=== PATIENT | female | born 1965 | race Hispanic/Latino ===

== ENCOUNTER 2016-11-05 15:25 | Emergency (ER) | payer MEDICAID ==
[2016-11-05 16:22] LABS: Urine Drugs of Abuse Note Disclamer
[2016-11-05 16:34] LABS: Basophils % (Auto) 1.1 % (0.0-1.8); Eosinophils % (Auto) 1.7 % (0.0-4.3); Hematocrit 40.6 % (30.3-42.9); Hemoglobin 13.4 gm/dl (10.1-14.3); Mean Corpuscular HGB Conc 33 % (30-34); Mean Corpuscular Hemoglobin 30 pg (28-32); Mean Corpuscular Volume 91 fl (79-97); Platelet Count 280 K/mm3 (140-440); Red Blood Count 4.47 M/mm3 (3.65-5.03); Red Cell Distribution Width 14.2 % (13.2-15.2)
[2016-11-05] MEDS ORDERED: TYLENOL PO ONE (16:35)
[2016-11-05 16:47] LABS: Bilirubin,Urine NEG (Negative); Blood,Urine NEG (Negative); Ketones,Urine NEG (Negative); Leukocyte Esterase,Urine TR (Negative); Mucus,Urine FEW /HPF; Nitrite,Urine NEG (Negative); Protein,Urine <15 mg/dL mg/dL (Negative); Urobilinogen,Urine < 2.0 mg/dL (<2.0)
[2016-11-05 17:08] LABS: Anion Gap 17 mmol/L; Blood Urea Nitrogen 21 mg/dL (7-17); Calcium 9.2 mg/dL (8.4-10.2); Carbon Dioxide 25 mmol/L (22-30); Chloride 108.1 mmol/L (98-107); Glucose 80 mg/dL (65-100); Potassium 3.8 mmol/L (3.6-5.0); Sodium 146 mmol/L (137-145)
[2016-11-05 20:31] VITALS: BP 112/73
[2016-11-05] MEDS ORDERED: KEPPRA PO ONE (22:05)
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
== END 2016-11-05 22:44 ==
LOC: ED 15:25
DX: F33.3 Major depressive disorder, recurrent, severe with psychotic symptoms (principal); R56.9 Unspecified convulsions; J45.909 Unspecified asthma, uncomplicated; J44.9 Chronic obstructive pulmonary disease, unspecified; F17.200 Nicotine dependence, unspecified, uncomplicated; F12.10 Cannabis abuse, uncomplicated; Z88.8 Allergy status to other drugs, medicaments and biological substances
CPT/HCPCS: 36415; 80048; 80307; 81001; 85025; 99284; G0480; 80320